=== PATIENT | male | born 1965 | race Caucasian/White ===

== ENCOUNTER 2018-10-10 20:32 | Emergency (ER) | payer OTHER ==
[~2018-10-10] VITALS: Ht 167.6 cm; Wt 90.7 kg
[2018-10-10 20:46] VITALS: BP 159/86
--- NOTE | 2018-10-10 20:46 | NUR ---
PT BIBSELF C/C CHRONIC BACK PAIN AND RAN OUT OF MEDS 1MONTH AGO. PT HAS UNSTEADY GAIT D/T PAIN. PT AOX4. RESP EVEN AND UNLABORED. PT ON MONITOR IN BED 7. WILL CONTINUE TO MONITOR.
--- NOTE | 2018-10-10 21:52 | NUR ---
RADIOLOGY AT BEDSIDE FOR XRAY
[2018-10-10] MEDS ORDERED: KETOROLAC TROMETHAMINE INJ 30 MG/ML VIAL ONE (21:58)
[2018-10-10] MEDS ORDERED: oxyCODONE/APAP (5/325 MG) 1 UDTAB TABLET ONE (21:59)
[2018-10-10] MEDS ORDERED: oxyCODONE/APAP (5/325 MG) 1 UDTAB TABLET PO ONE (22:00)
[2018-10-10] MEDS ORDERED: KETOROLAC TROMETHAMINE INJ 30 MG/ML VIAL IM ONE (22:00)
--- NOTE | 2018-10-10 23:24 | NUR ---
Patient discharged to home in stable condition. Written and verbal after care instructions given. Patient verbalizes understanding of instruction.
== END 2018-10-10 23:28 | disposition home or self-care (01) ==
LOC: ER 20:32
DX: G89.29 Other chronic pain (principal); M54.5 Low back pain; M25.552 Pain in left hip; I10 Essential (primary) hypertension; E11.9 Type 2 diabetes mellitus without complications
CPT/HCPCS: 72100; 73503; 96372; 99283; J1885; 73502

== ENCOUNTER 2018-10-22 14:41 | Emergency (ER) | payer OTHER ==
[~2018-10-22] VITALS: Ht 167.6 cm; Wt 99.3 kg
--- NOTE | 2018-10-22 15:05 | NUR ---
C/O LEFT ELBOW TINGLING SENSATION x 2 DAYS. PATIENT A/OX4, NO DISTRESS NOTED. NEEDS ATTENDED. KEPT COMFORTABLE IN BED. WAITING FOR MD BOWENS.
[2018-10-22] MEDS ORDERED: ACETAMINOPHEN ES 500 MG TABLET ONE (15:15)
[2018-10-22] MEDS ORDERED: ACETAMINOPHEN 325 MG TABLET PO ONE (15:30)
[2018-10-22] MEDS ORDERED: LIDOCAINE 1%-EPI 1:100,000 20 ML VIAL ONE (15:49)
--- NOTE | 2018-10-22 17:30 | NUR ---
I&D DONE ON LEFT ELBOW, PATIENT'S LEFT ELBOW CLEANSED, AND COVERED WITH BANDAGE, ARM SLING APPLIED, NEEDS ATTENDED. Patient discharged to home in stable condition. Written and verbal after care instructions given. Patient verbalizes understanding of instruction.
[2018-10-22 17:39] VITALS: BP 128/79
== END 2018-10-22 17:40 | disposition home or self-care (01) ==
LOC: ER 14:41
DX: M70.22 Olecranon bursitis, left elbow (principal); I10 Essential (primary) hypertension; E11.9 Type 2 diabetes mellitus without complications; G89.29 Other chronic pain; Y93.89 Activity, other specified
CPT/HCPCS: 20605; 36415; 73080; 89051; 99284; A6403 ×2; J3490

== ENCOUNTER 2018-11-04 08:36 | Emergency (ER) | payer OTHER ==
[~2018-11-04] VITALS: Ht 170.2 cm; Wt 95.3 kg
--- NOTE | 2018-11-04 08:39 | NUR ---
CAME IN FOR NECK AND R SHOULDER PAIN X 3 DAYS. WORST SINCE LAST NIGHT. TO ER BED 10, HOOKED TO MONITOR, PROVIDED W WARM BLANKET, DR CHAUHAN AT BEDSIDE
[2018-11-04] MEDS ORDERED: KETOROLAC TROMETHAMINE 15 MG/ML VIAL ONE (09:23)
[2018-11-04] MEDS: KETOROLAC TROMETHAMINE INJ 30 MG/ML VIAL IM ONE (09:26)
[2018-11-04 09:28] VITALS: BP 159/99
--- NOTE | 2018-11-04 09:28 | NUR ---
Patient discharged to home in stable condition. Written and verbal after care instructions given. Patient verbalizes understanding of instruction.
== END 2018-11-04 09:31 | disposition home or self-care (01) ==
LOC: ER 08:37
DX: G89.29 Other chronic pain (principal); M54.2 Cervicalgia; M25.511 Pain in right shoulder; I10 Essential (primary) hypertension; E11.9 Type 2 diabetes mellitus without complications; M19.90 Unspecified osteoarthritis, unspecified site
CPT/HCPCS: 96372; 99283; J1885